=== PATIENT | male | born 1970 | race Caucasian/White ===

== ENCOUNTER 2017-02-11 16:05 | Inpatient (IN) | payer BC ==
[~2017-02-11] VITALS: Ht 167.6 cm; Wt 127.5 kg
--- NOTE | ~2017-02-11 | EKG ---
[place] [address] [facility] [place] [address] ELECTROCARDIOGRAM REPORT Name: VINEET FONG Room #: 441-P ADM IN M.R.#: [id number] Admission: 02/11/17 Attend Phys: Keo Rodriguez MD Discharge: Date of : 68 Report #: [id number] THIS REPORT FOR: //name// [facility] ED Test Date: 2017-02-11 Test Time: 16:27:49 Pat Name: VINEET FONG Department: Room: [facility] Gender: M Email Specialist: winter : 1970 Requested By: Shy Jasmine Order Number: [id number] MD: Dave Wilhelm Measurements Intervals [place] Rate: 97 P: 57 LA: 144 QRS: 39 QRSD: 84 T: 41 QT: 338 QTc: 430 Interpretive Statements Sinus rhythm No significant abnormality No previous ECG available for comparison Electronically Signed On 02-12-2017 8:40:41 CDT by Dave Wilhelm [email or web address] <ELECTRONICALLY SIGNED> By: Dave Wilhelm MD, MERGED WITH [facility] 02/12/17 0840 1627 1627 Dave Wilhelm MD, FACC /EPI
--- NOTE | ~2017-02-11 | HC ---
[facility] [place] [address] CONSULTATION Name: VINEET FONG Room #: 441-P [facility] IN M.R.#: [id number] Admission: 02/11/17 Attend Phys: Keo Rodriguez MD Discharge: 02/12/17 Date of : 68 Report #: [id number] THIS REPORT FOR: //name// CC: Mathew Rodriguez REASON FOR CONSULTATION: Hyponatremia. REASON FOR THE PRESENTATION: Left-sided chest pain. HISTORY OF PRESENT ILLNESS: This is a 46-year-old with long-standing diabetes mellitus and hypertension. He is maintained on lisinopril and hydrochlorothiazide. He had been complaining of this constant left-sided chest pain. This is radiating to the left side of his lower rib cage from the posterior aspect. No reported fever or chills. This has been running with him for about one week. He visited in urgent care center and was told to have an ulcer and was prescribed PPI. Few days later, he started to have some rash in a dermatomal distribution. On presentation to the emergency room, he was found to have hyponatremia that he was not aware of previously. He has been taking some hydrochlorothiazide. No nonsteroidal anti-inflammatory medications. His sodium has corrected to around 127 this morning. As I have stated, he is not known to have any previous sodium issues. He has normal kidney function. He is maintained on blood pressure medications, including lisinopril, hydrochlorothiazide and metformin for his diabetes mellitus. He suffers from chronic lymphedema for which he takes hydrochlorothiazide and Lasix. PAST SURGICAL HISTORY: 1. Diabetes mellitus. 2. Hypertension. 3. Lymphedema. 4. Status post gastric bypass surgery in 2003. 5. Status post right ACL repair. 6. Status post rectal abscess fistula surgery. ALLERGIES: PENICILLIN. MEDICATIONS: 1. Metformin. 2. Lisinopril/hydrochlorothiazide. 3. Furosemide. FAMILY HISTORY: Very significant diabetes mellitus and hypertension. SOCIAL HISTORY: No drug or alcohol abuse. He works for the [employer]. REVIEW OF SYSTEMS: GENERAL: No fever or chills. [facility] [address] [place] [address] CONSULTATION Name: VINEET FONG Room #: 441-P [facility] IN M.R.#: [id number] Admission: 02/11/17 Attend Phys: Keo Rodriguez MD Discharge: 02/12/17 Date of : 68 Report #: [id number] CARDIOVASCULAR: As per the history of present illness. PULMONARY: No cough or hemoptysis. GASTROINTESTINAL: Occasional abdominal pain. GENITOURINARY: No frequency, no urgency. SKIN: Rash as described in the history of present illness. Chronic lymphedema. PHYSICAL EXAMINATION: GENERAL: He is alert, oriented, in no apparent distress. VITAL SIGNS: Blood pressure was 118/71, pulse rate of 77. Afebrile. HEAD AND NECK: No jugular venous distention, no bruit, no thyromegaly. CHEST: Clear to auscultation bilaterally. CARDIOVASCULAR: No rub detected. ABDOMEN: Soft, nontender. LOWER EXTREMITIES: Trace edema. He does have chronic venous stasis changes. SKIN: He does have vesicular rash on the posterior aspect of the left lower ribcage, characteristic of shingles. LABORATORY DATA: Laboratory values from today reviewed. Sodium was up to 127, chloride 95 and creatinine is 1.0. Urine is completely unremarkable. Urine electrolytes pending. ASSESSMENT, IMPRESSION AND PLAN: 1. Hyponatremia related to hydrochlorothiazide and chest wall shingles. 2. Diabetes mellitus. 3. Hypertension. 4. Shingles. 5. We will send basic workup for his hyponatremia. However, this seems to be related to his chest wall shingles along with the hydrochlorothiazide. 6. Stop hydrochlorothiazide. 7. Acyclovir for his shingles. 8. He is maintained in normal saline and his sodium seems to be correcting appropriately. 9. Expect him to fully recover from this. Discussed with him to try to switch him to something else other than the hydrochlorothiazide for his hypertension. 10. Continue to address his other comorbid issues, including his diabetes mellitus and hypertension. <ELECTRONICALLY SIGNED> By: Jessica David MD 02/13/17 0933 0834 1122 Jessica David MD /nt
[2017-02-11 16:07] VITALS: BP 175/109
[2017-02-11 16:41] LABS: ABSOLUTE NEUTROPHILS 4.7 thou/uL (1.4-8.2); BASOPHILS 0.9 % (0.0-2.0); EOSINOPHILS 1.2 % (0.0-3.0); HEMATOCRIT 40.1 % (42.0-52.0); HEMOGLOBIN 14.2 gm/dL (14.0-18.0); LYMPHOCYTES 27.2 % (24.0-44.0); MCH 30.7 pg (26.0-34.0); MCHC 35.4 g/dL (28.0-37.0); MCV 86.6 fL (80.0-100.0); MONOCYTES 10.3 % (1.0-8.0); PLATELET COUNT 200 thou/uL (150-400); POLYS 60.4 % (36.0-66.0); RBC 4.63 mil/uL (4.50-6.00); RDW 13.8 % (10.5-14.5); WBC 7.8 thou/uL (4.0-11.0)
[2017-02-11 16:42] LABS: MANUAL DIFF NO
[2017-02-11 16:51] LABS: ANION GAP 12 mmol/L (7-16); BUN 29 mg/dL (7-18); CALCIUM 8.3 mg/dL (8.5-10.1); CHLORIDE 89 mmol/L (98-107); CO2 20 mmol/L (21-32); CREATININE 1.3 mg/dL (0.7-1.3); GLUCOSE 151 mg/dL (74-106); POTASSIUM 4.7 mmol/L (3.5-5.1); SODIUM 121 mmol/L (136-145)
[2017-02-11 16:58] LABS: ALBUMIN 3.5 g/dL (3.4-5.0); ALKALINE PHOSPHATASE 84 U/L (46-116); SGOT 28 U/L (15-37); SGPT 20 U/L (30-65); TOTAL BILIRUBIN 1.1 mg/dL (<0.1-1.0); TROPONIN-I < 0.04 ng/mL (<0.04-0.07)
[2017-02-11 17:33] LABS: URINE BILIRUBIN NEGATIVE (Negative); URINE BLOOD NEGATIVE (Negative); URINE COLOR YELLOW; URINE GLUCOSE-RANDOM* TRACE (Negative); URINE KETONES NEGATIVE (Negative); URINE LEUKOCYTES-REFLEX NEGATIVE (Negative); URINE PROTEIN (DIPSTICK) NEGATIVE (Negative); URINE UROBILINOGEN 0.2 E.U./dl (0.2-1.0)
[2017-02-11] MEDS ORDERED: LASIX 20 MG TAB20 MG PO (18:51)
[2017-02-11] MEDS ORDERED: LISINOPRIL10 MG PO (18:51)
[2017-02-11] MEDS ORDERED: HYDROCHLOROTHIA25 M2 PO (18:51)
[2017-02-11 19:22] VITALS: BP 122/86
[2017-02-11 19:52] VITALS: BP 129/75
[2017-02-11] MEDS ORDERED: METFORMIN HCL500 MG PO (21:37)
[2017-02-12 04:17] LABS: HEMATOCRIT 38.7 % (42.0-52.0); HEMOGLOBIN 13.4 gm/dL (14.0-18.0); MCH 30.4 pg (26.0-34.0); MCHC 34.7 g/dL (28.0-37.0); MCV 87.6 fL (80.0-100.0); RBC 4.42 mil/uL (4.50-6.00); RDW 13.9 % (10.5-14.5); WBC 6.1 thou/uL (4.0-11.0)
[2017-02-12 04:22] VITALS: BP 131/71
[2017-02-12 04:30] LABS: ANION GAP 9 mmol/L (7-16); BUN 24 mg/dL (7-18); CALCIUM 8.2 mg/dL (8.5-10.1); CHLORIDE 95 mmol/L (98-107); CO2 23 mmol/L (21-32); GLUCOSE 94 mg/dL (74-106); POTASSIUM 4.4 mmol/L (3.5-5.1); SODIUM 127 mmol/L (136-145); TROPONIN-I < 0.04 ng/mL (<0.04-0.07)
[2017-02-12 07:25] VITALS: BP 118/71
[2017-02-12] MEDS ORDERED: ACYCLOVIR 400400 MG PO (14:44)
[2017-02-12] MEDS ORDERED: LORTAB 5-325 M1 EACH PO (14:45)
[2017-02-12 14:56] VITALS: BP 118/71
== END 2017-02-12 16:25 | disposition home or self-care (01) | DRG 596 ==
LOC: ER 16:05 → EROBS 17:54 → 4S 17:54
PROVIDERS: Family Medicine; Physician Assistant
DX: B02.9 Zoster without complications (principal); Z68.42 Body mass index [BMI] 45.0-49.9, adult; E87.1 Hypo-osmolality and hyponatremia; E78.5 Hyperlipidemia, unspecified; E66.9 Obesity, unspecified; E11.9 Type 2 diabetes mellitus without complications; I10 Essential (primary) hypertension; R07.89 Other chest pain; F17.210 Nicotine dependence, cigarettes, uncomplicated; Z98.84 Bariatric surgery status; Z88.1 Allergy status to other antibiotic agents; Z88.0 Allergy status to penicillin; Z79.899 Other long term (current) drug therapy; Z82.49 Family history of ischemic heart disease and other diseases of the circulatory system; Z71.6 Tobacco abuse counseling; Z83.3 Family history of diabetes mellitus
CPT/HCPCS: 10100